=== PATIENT | female | born 1955 | race Caucasian/White ===

== ENCOUNTER → 2016-12-25 | Outpatient (CLI) | payer BC ==
[~2016-12-25] MED LIST: 00186-0372-20 IH; CEPHALEXIN500 M1 PO; DIOVAN 80MG80 MG PO; DIOVAN HCT 12.51 TA2 PO; FLOVENT DI50 MCG/Act IH; GENTAMICIN EYE D5 ML OP; INDERAL80 MG PO; LEVOTHYROXINE PO; NORCO 325 MG-51 TAB PO; PREVACID 30MG30 M1 PO; PREVACID30 MG PO; PROPRANOLOL; SINGULAIR 110 MG/TAB PO; SYNTHROID0.1 MG/TAB PO; ZOFRAN 4MG T4 MG/TAB PO
== END ==
LOC: MC.RAD 08:26
DX: Z12.31 Encounter for screening mammogram for malignant neoplasm of breast (principal)

== ENCOUNTER → 2016-12-27 | Outpatient (CLI) | payer BC | LOC: MC.RAD 10:02 | DX: N64.89 Other specified disorders of breast (principal) ==

== ENCOUNTER → 2017-01-01 | Outpatient (CLI) | payer BC | LOC: MC.RAD 06:58 | DX: N64.89 Other specified disorders of breast (principal) ==

== ENCOUNTER 2017-03-24 09:45 | Outpatient (RCR) | payer BC | END 2017-04-08 | LOC: WSPT | DX: M25.512 Pain in left shoulder (principal) | CPT/HCPCS: G0283-GP ==

== ENCOUNTER 2017-05-14 15:30 | Outpatient (RCR) | payer BC | END 2017-05-22 15:09 | LOC: WSPT 15:30 | DX: M25.512 Pain in left shoulder (principal) ==

== ENCOUNTER → 2019-02-22 | Outpatient (CLI) | payer BC | LOC: MC.RAD 02-19 07:15 | DX: Z12.31 Encounter for screening mammogram for malignant neoplasm of breast (principal) ==

== ENCOUNTER → 2020-05-04 | Outpatient (CLI) | payer BC | LOC: MC.RAD 09:45 | DX: Z12.31 Encounter for screening mammogram for malignant neoplasm of breast (principal); Z98.82 Breast implant status ==

== ENCOUNTER 2021-01-07 07:41 | Inpatient (IN) | payer BC ==
[~2021-01-07] VITALS: Ht 162.6 cm; Wt 99.5 kg
[2021-01-07] VITALS (7 sets, daily range): BP systolic 107–154; BP diastolic 47–69; PULSE 45–60; TEMP 97.5–98
[2021-01-07 08:15] LABS: BASO % 0.5 % (0.0-2.0); EOS # 0.1 (0.0-0.7); EOS % 2.1 % (0-4.0); GRAN # 3.9 (1.4-6.5); GRAN % 60.7 % (42.2-75.2); HEMATOCRIT 39.3 % (37.0-47.0); HEMOGLOBIN 12.6 g/dl (12.5-16.0); LYMPH # 1.8 (1.2-3.4); LYMPH % 28.2 % (20.0-51.0); MEAN CELL VOLUME 89 fl (80.0-100.0); MEAN CORPUSCULAR HEMOGLOBIN 29 pg (27.0-31.0); MEAN CORPUSCULAR HGB CONC 32 g/dl (33.0-37.0); MEAN PLATELET VOLUME 9.5 fl (7.4-10.4); MONO # 0.5 (0.1-0.6); MONO % 8.2 % (1.7-9.3); PLATELET COUNT 190 K/mm3 (130-400); REDCELL DISTRIBUTION WIDTH-CV 14.2 % (11.5-14.5)
[2021-01-07 08:21] LABS: INR 1.1 (0.8-3.0); PROTHROMBIN TIME 12.5 SECONDS (9.7-12.8)
[2021-01-07 08:25] LABS: ALANINE AMINOTRANSFERASE 22 U/L (4-34); ALBUMIN 3.7 gm/dL (3.5-5.0); ALKALINE PHOSPHATASE 60 U/L (50-136); ANION GAP 6 mmol/L (7-16); AST,SGOT 23 U/L (15-37); BLOOD UREA NITROGEN 13 mg/dL (7-17); CALCIUM 8.5 mg/dL (8.4-10.2); CARBON DIOXIDE 28 mmol/L (22-30); CHLORIDE 105 mmol/L (98-107); CREATINE KINASE 37 U/L (30-135); CREATININE, serum 0.56 (0.52-1.25); GLUCOSE 103 mg/dL (74-106); MAGNESIUM 1.9 mg/dL (1.6-2.3); POTASSIUM 3.6 mmol/L (3.4-5.0); SODIUM 139 mmol/L (137-145); TOTAL PROTEIN 6.8 gm/dL (6.4-8.2)
[2021-01-07 08:37] LABS: TROPONIN-I < 0.012 ng/mL (0.000-0.035)
--- NOTE | 2021-01-07 11:00 | NUR ---
Patient to room 311 from the ED on the stretcher. Patient was able to scoot onto the medical bed without assistance. A&Ox4. IV CDI. Family at the bedside. Nurse oriented the patient to location, room and bed. No further needs expressed from the patient. Call light within reach
[2021-01-07] MEDS ORDERED: ZYRTEC 10MG10 MG PO (11:04)
[2021-01-07] MEDS ORDERED: ADVIL200 MG PO (11:04)
[2021-01-07] MEDS ORDERED: VITAMINC1000TA (11:05)
[2021-01-07] MEDS ORDERED: MASON NATURAL2000 IU PO (11:05)
--- NOTE | 2021-01-07 13:15 | NUR ---
Patient taken by wheelchair to CT. Patient 1xassist to the wheelchair. Family staying in the room.
--- NOTE | 2021-01-07 13:41 | NUR ---
Patient back to room from CT scan.
--- NOTE | 2021-01-07 15:45 | NUR ---
Report from LUPILLO Arredondo. Pt resting in bed, awake and alert, reports feeling better, denies needs at this time. IVF's infusing per orders. Call light in reach.
--- NOTE | 2021-01-07 17:57 | NUR ---
Pt sitting up in bed, attempting to eat dinner, reports feeling much better compared to arrival but still having slight dizziness when sitting up. 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 No further needs reported. Call light in reach.
--- NOTE | 2021-01-08 03:03 | NUR ---
BOTH HAND GRASPS ARE STRONG BUT THEY ARE UNEQUAL. THE LEFT HAND GRASP IS STRONGER THAN THE RIGHT.
[2021-01-08 03:22] VITALS: BP 115/47; PULSE 48; TEMP 97.5
[2021-01-08 06:39] LABS: BASO % 0.4 % (0.0-2.0); EOS # 0.1 (0.0-0.7); EOS % 1.9 % (0-4.0); GRAN % 56.7 % (42.2-75.2); HEMATOCRIT 37.5 % (37.0-47.0); HEMOGLOBIN 11.7 g/dl (12.5-16.0); LYMPH # 1.8 (1.2-3.4); LYMPH % 33.6 % (20.0-51.0); MEAN CELL VOLUME 92 fl (80.0-100.0); MEAN CORPUSCULAR HEMOGLOBIN 29 pg (27.0-31.0); MEAN CORPUSCULAR HGB CONC 31 g/dl (33.0-37.0); MEAN PLATELET VOLUME 10.2 fl (7.4-10.4); MONO # 0.4 (0.1-0.6); PLATELET COUNT 179 K/mm3 (130-400); REDCELL DISTRIBUTION WIDTH-CV 14.4 % (11.5-14.5)
[2021-01-08 07:03] LABS: CALCIUM 7.9 mg/dL (8.4-10.2); CHOLESTEROL RISK RATIO 3.7; CREATININE, serum 0.52 (0.52-1.25); POTASSIUM 3.5 mmol/L (3.4-5.0)
[2021-01-08 08:23] VITALS: BP 126/55; PULSE 65; TEMP 97.2
--- NOTE | 2021-01-08 09:00 | NUR ---
Assessment completed, alert/oriented, vital signs stable/ slightly bradycardic and is having dizziness with any movement or exertion/ position changes, she deffinately has right sided deficits, she has RUE and RLE weakness as well as reports some right sided facial tingling/ and some very mild facial paralysis, she tested positive for BPPV with PT and was treated with positional debris clearing manuever, heart regular/ SB on tele rate in the 50's, she had her ECHO, she is scheduled for MRI of brain, started on ASA, family present in the room, she denies other need at this time
--- NOTE | 2021-01-08 09:09 | NUR ---
Initial visit; Patient and family thanked Photogrammetric Surveyor for looking in on her. Photogrammetric Surveyor offered God's blessings and will follow up when patient is recovering.
[2021-01-08 12:18] VITALS: BP 120/50; PULSE 49; TEMP 97.7
[2021-01-08 16:15] VITALS: BP 108/51; PULSE 49; TEMP 97.9
[2021-01-08 20:08] VITALS: BP 114/51; PULSE 50; TEMP 98.5
[2021-01-09 04:31] VITALS: BP 114/51; PULSE 50; TEMP 97.8
--- NOTE | 2021-01-09 07:05 | NUR ---
awake resting in bed, bedside shift report received from LUPILLO Beal
--- NOTE | 2021-01-09 07:35 | NUR ---
c/o headache, states she thinks she slept wrong, medicated with tylenol 650mg po, full assessment completed, see interventions for further info, denies further needs
[2021-01-09 08:13] VITALS: BP 131/52; PULSE 50; TEMP 97.9
[2021-01-09 08:50] LABS: BASO % 0.3 % (0.0-2.0); EOS # 0.1 (0.0-0.7); EOS % 1.3 % (0-4.0); GRAN % 67.1 % (42.2-75.2); HEMATOCRIT 35.1 % (37.0-47.0); HEMOGLOBIN 11.1 g/dl (12.5-16.0); LYMPH # 1.5 (1.2-3.4); LYMPH % 24.4 % (20.0-51.0); MEAN CELL VOLUME 91 fl (80.0-100.0); MEAN CORPUSCULAR HEMOGLOBIN 29 pg (27.0-31.0); MEAN CORPUSCULAR HGB CONC 32 g/dl (33.0-37.0); MEAN PLATELET VOLUME 9.8 fl (7.4-10.4); MONO # 0.4 (0.1-0.6); MONO % 6.6 % (1.7-9.3); PLATELET COUNT 157 K/mm3 (130-400); RED BLOOD COUNT 3.87 M/mm3 (4.10-5.30); REDCELL DISTRIBUTION WIDTH-CV 14.4 % (11.5-14.5)
--- NOTE | 2021-01-09 09:00 | NUR ---
appears to be dozing, in bed with lights off, eyes closed, resp quiet and easy, daughter at bedside
[2021-01-09 09:04] LABS: CREATININE, serum 0.49 (0.52-1.25); POTASSIUM 3.4 mmol/L (3.4-5.0)
--- NOTE | 2021-01-09 09:43 | NUR ---
awakened and Dr Anglin and care team in to see patient
--- NOTE | 2021-01-09 10:30 | NUR ---
physical therapy in to work with patient
--- NOTE | 2021-01-09 11:15 | NUR ---
PATEL Cooper in to see patient
--- NOTE | 2021-01-09 11:30 | NUR ---
sitting up in chair, c/o nausea after working with therapy, medicated with zofran 4mg slow IV
[2021-01-09 11:47] VITALS: BP 131/54; PULSE 45; TEMP 98.5
--- NOTE | 2021-01-09 13:30 | NUR ---
durable medical equipment technician called and stated heart rate was in the high 30s, entered room and she is in bed and appears to be sleeing, lights off, resp quiet and easy, at bedside
--- NOTE | 2021-01-09 14:28 | NUR ---
Hammer Fitter met with patient and patient's , Silas (ph#[phone]) to discuss discharge planning. Patient lives in [place] with Silas and sees Dr. Ambrocio for primary care. Patient obtains medications from [facility] with no difficulties. Patient does not use any DME and is normally independent with ADLS. Patient does not have DPOA-HC, but was interested in completing form while she is here. SW will follow up. Discharge Plan: Home with
--- NOTE | 2021-01-09 14:34 | NUR ---
resting in bed, family at bedisde
--- NOTE | 2021-01-09 14:54 | NUR ---
ambulating in [place] with physical therapy, steady gait
--- NOTE | 2021-01-09 16:24 | NUR ---
appears to be sleeping, in bed with lights off, eyes closed, resp quiet and easy, family at bedside
[2021-01-09 16:25] VITALS: BP 147/61; PULSE 49; TEMP 98
--- NOTE | 2021-01-09 16:40 | NUR ---
assisted up to bathroom, states she is feeling much better and ambulated with slow stady gate, then back to bed
--- NOTE | 2021-01-09 18:48 | NUR ---
bedside shift report given to LUPILLO Beal
[2021-01-09 20:08] VITALS: BP 133/61; PULSE 48; TEMP 97.8
[2021-01-10] VITALS (10 sets, daily range): BP systolic 120–165; BP diastolic 52–73; PULSE 42–67; TEMP 97.5–98
--- NOTE | 2021-01-10 06:23 | NUR ---
PATIENT REPORTED SHE SLEPT ABOUT 4 HOURS LAST NIGHT. PATIENT CONTINUES TO BE BRADYCARDIC. PLEASE SEE PATEL WHITE'S NOTE.
[2021-01-10 07:44] LABS: ANION GAP 7 mmol/L (7-16); BLOOD UREA NITROGEN 6 mg/dL (7-17); CARBON DIOXIDE 24 mmol/L (22-30); CHLORIDE 110 mmol/L (98-107); CREATININE, serum 0.45 (0.52-1.25); GLUCOSE 87 mg/dL (74-106); MAGNESIUM 1.9 mg/dL (1.6-2.3); POTASSIUM 3.2 mmol/L (3.4-5.0); SODIUM 141 mmol/L (137-145)
[2021-01-10 08:09] LABS: TROPONIN-I < 0.012 ng/mL (0.000-0.035)
--- NOTE | 2021-01-10 09:24 | NUR ---
Assessment completed, alert/oriented, vital signs stable/ still having bradycardia and had episode during night where HR dipped into the 30's/ Cardiology is aware and as of now plans for pacemaker once discussed with the patient, her dizziness/ vertigo symptoms are improved but still present, she is ambulating with PT this morning and doing better than she has been, she is NPO for possible pacer, family present, she verabalized understanding of POC, denies other needs or concerns at this time
--- NOTE | 2021-01-10 10:45 | NUR ---
Patient is going to lab support tech for Pacemaker placement at this time
[2021-01-11 04:21] VITALS: BP 133/58; PULSE 66; TEMP 98
[2021-01-11 08:02] VITALS: BP 122/60; PULSE 59; TEMP 97.9
--- NOTE | 2021-01-11 08:34 | NUR ---
Assessment completed, alert/oriented, vital signs stable, heart RRR/ A paced on tele, left arm in immobilizer and incision s/p pacer is C/D/I, denies significant pain or discomfort, lungs CTA/ no resp.difficulty noted, she reports continue vertigo but is improved significantly from before, K+ 3.1 and replacing potassium per protocol she is sitting up in the chair, morning meds given, she dneies other needs at this time, will continue to monitor
--- NOTE | 2021-01-11 09:26 | NUR ---
[facility] IPR consulted. Awaiting screen.
--- NOTE | 2021-01-11 09:37 | NUR ---
[employer] attended clinical rounds with the team. The patient's Lyme Disease screen came back positive, Infectious disease consulted.
[2021-01-11 12:00] VITALS: BP 125/62; PULSE 60; TEMP 98
[2021-01-11 16:00] VITALS: BP 132/60; PULSE 61; TEMP 97.7
--- NOTE | 2021-01-11 18:00 | NUR ---
Assumed care of Pt from LUPILLO Headley, report received.
[2021-01-11 20:12] VITALS: BP 137/58; PULSE 60; TEMP 97.6
--- NOTE | 2021-01-11 20:54 | NUR ---
Initial shift assessment done- denies pain, pacemaker site clean and dry with steri strips intact, Tele on, pt states she did eat well tday- requesting Miralax tonight- last BM was last friday. Sitting up- in chair at this time. Pleasant-alert/oriented- understands to call for assistance up to bathroom.
[2021-01-11 23:49] VITALS: BP 147/62; PULSE 63; TEMP 97.6
[2021-01-12 03:45] VITALS: BP 141/70; PULSE 62; TEMP 97.9
--- NOTE | 2021-01-12 05:28 | NUR ---
Has been sleeping failry well since about 11pm last night-- up to bathroom at this time with assist, states overall she is feeling better-does still have some vertigo/dizziness when she moves but states it is so much better,VSS. tele on-paced.
--- NOTE | 2021-01-12 05:45 | NUR ---
Tylenol given for the "start of a headache".
[2021-01-12 06:26] LABS: BASO % 0.3 % (0.0-2.0); EOS # 0.2 (0.0-0.7); EOS % 2.3 % (0-4.0); GRAN # 4.3 (1.4-6.5); GRAN % 65.3 % (42.2-75.2); HEMOGLOBIN 11.5 g/dl (12.5-16.0); LYMPH # 1.7 (1.2-3.4); LYMPH % 25.1 % (20.0-51.0); MEAN CELL VOLUME 89 fl (80.0-100.0); MEAN CORPUSCULAR HEMOGLOBIN 29 pg (27.0-31.0); MEAN CORPUSCULAR HGB CONC 32 g/dl (33.0-37.0); MONO # 0.4 (0.1-0.6); MONO % 6.5 % (1.7-9.3); PLATELET COUNT 156 K/mm3 (130-400); RED BLOOD COUNT 4.04 M/mm3 (4.10-5.30); REDCELL DISTRIBUTION WIDTH-CV 14.5 % (11.5-14.5)
[2021-01-12 06:32] LABS: HEMATOCRIT 35.9 % (37.0-47.0)
[2021-01-12 06:44] LABS: CALCIUM 8.1 mg/dL (8.4-10.2); CREATININE, serum 0.44 (0.52-1.25); POTASSIUM 3.4 mmol/L (3.4-5.0)
[2021-01-12 07:49] VITALS: BP 129/46; PULSE 60; TEMP 97.6
--- NOTE | 2021-01-12 09:48 | NUR ---
Pt awake and alert upon entry, sitting in the recliner, family in room, has C/O headache medications given for relief. Shift assessments complete, left Pt sitting in recliner, call light in reach.
[2021-01-12 11:58] VITALS: BP 146/54; PULSE 60; TEMP 98.1
--- NOTE | 2021-01-12 14:31 | NUR ---
Ayleen, [facility] Director reports that the insurance has denied the patient for post acute rehab. SW met with the patient to discuss options. The patient declined home health. The patient would like to discuss OP PT with her before making a decision. *Discharge disposition: Home
[2021-01-12 17:37] VITALS: BP 151/69; PULSE 60; TEMP 97.9
[2021-01-12 19:17] VITALS: BP 131/60; PULSE 58; TEMP 97.7
--- NOTE | 2021-01-12 20:00 | NUR ---
Assessment complete. Patient is alert and oriented with no complaints of pain, migraine of dizziness at this time. She ambulates steadily with walker and SBA. Right forearm INT is leaky when flushed; IV removed and initiation of new site is completed. Comfort measures met and call light in reach. Will continue to monitor.
[2021-01-12 23:42] VITALS: BP 159/69; PULSE 59; TEMP 97.8
[2021-01-13 03:34] VITALS: BP 149/65; PULSE 60; TEMP 97.8
[2021-01-13 06:28] LABS: BASO % 0.3 % (0.0-2.0); EOS # 0.2 (0.0-0.7); EOS % 3.1 % (0-4.0); GRAN # 3.5 (1.4-6.5); GRAN % 59.4 % (42.2-75.2); HEMOGLOBIN 10.9 g/dl (12.5-16.0); LYMPH # 1.7 (1.2-3.4); LYMPH % 29.4 % (20.0-51.0); MEAN CELL VOLUME 89 fl (80.0-100.0); MEAN CORPUSCULAR HEMOGLOBIN 29 pg (27.0-31.0); MEAN CORPUSCULAR HGB CONC 32 g/dl (33.0-37.0); MONO # 0.4 (0.1-0.6); MONO % 7.5 % (1.7-9.3); PLATELET COUNT 161 K/mm3 (130-400); REDCELL DISTRIBUTION WIDTH-CV 14.7 % (11.5-14.5)
[2021-01-13 06:45] LABS: CALCIUM 8.4 mg/dL (8.4-10.2); CREATININE, serum 0.4 (0.52-1.25); POTASSIUM 3.4 mmol/L (3.4-5.0)
[2021-01-13 06:52] LABS: HEMATOCRIT 33.9 % (37.0-47.0)
[2021-01-13 08:42] VITALS: BP 122/74; PULSE 67; TEMP 97.8
--- NOTE | 2021-01-13 09:12 | NUR ---
Pt awake and alert this morning, no C/O pain at this time. Pt is able to turn her head more this morning without vertigo. Shift assessments complete, left Pt call light in reach, bed in lowest position.
[2021-01-13] MEDS ORDERED: CEPHALEXIN500 M1 PO (10:52)
[2021-01-13] MEDS ORDERED: DOXYCYCLINE 10100 MG PO (10:54)
[2021-01-13] MEDS ORDERED: TYLENOL 325MG325 MG PO (10:55)
[2021-01-13] MEDS ORDERED: ZOFRAN ODT4 MG PO (10:56)
[2021-01-13] MEDS ORDERED: IMITREX50 MG PO (11:00)
[2021-01-13 12:11] VITALS: BP 137/66; PULSE 59; TEMP 98.5
--- NOTE | 2021-01-13 12:45 | NUR ---
FARIDEH sent fax to outpatient therapy for PT orders on [facility] Fax to [phone]. Educates patient and family on services to setup on Friday.
--- NOTE | 2021-01-13 14:00 | NUR ---
Pt discharged to home, discussed discharge packet with Pt, answered questions. Escorted Pt to entrance via WC, assisted into vehicle. Pt left with family via private transportation.
[2021-01-14 13:27] LABS: SPOTTED FEVER IGG ANTIBODY <1:64 (<1:64)
== END 2021-01-13 14:00 | disposition home or self-care (01) | DRG 243 ==
LOC: COL.ER 07:41 → MEDICAL 08:51
PROVIDERS: Emergency Medicine; Internal Medicine Infectious Disease; Physician Assistant; Student in an Organized Health Care Education/Training Program; ADMIT Hospitalist
PROC: 0JH606Z Insertion of Pacemaker, Dual Chamber into Chest Subcutaneous Tissue and Fascia, Open Approach (ICD-10-PCS; principal; 2021-01-07)
PROC: 02HK3JZ Insertion of Pacemaker Lead into Right Ventricle, Percutaneous Approach (ICD-10-PCS; 2021-01-07)
PROC: 02H63JZ Insertion of Pacemaker Lead into Right Atrium, Percutaneous Approach (ICD-10-PCS; 2021-01-07)
PROC: 4A03X5D Measurement of Arterial Flow, Intracranial, External Approach (ICD-10-PCS; 2021-01-07)
DX: R00.1 Bradycardia, unspecified (principal); A69.22 Other neurologic disorders in Lyme disease; I44.0 Atrioventricular block, first degree; I10 Essential (primary) hypertension; J45.909 Unspecified asthma, uncomplicated; K21.9 Gastro-esophageal reflux disease without esophagitis; E03.9 Hypothyroidism, unspecified; H81.22 Vestibular neuronitis, left ear; M62.81 Muscle weakness (generalized); E87.6 Hypokalemia; G43.909 Migraine, unspecified, not intractable, without status migrainosus; R20.0 Anesthesia of skin; Z88.1 Allergy status to other antibiotic agents; S09.90XA Unspecified injury of head, initial encounter; W18.30XA Fall on same level, unspecified, initial encounter; I45.10 Unspecified right bundle-branch block
CPT/HCPCS: 99222-AI; 99232-AI; 99233-AI; 99239; A9585; C1785; C1894; C1898; J0690; J1200; J1650; J2250; J2405; J2765; J3010; J7030; Q9967

== ENCOUNTER 2021-01-31 09:00 | Outpatient (RCR) | payer BC ==
[~2021-01-31 09:00] MED LIST changes: +ADVIL200 MG PO; +DOXYCYCLINE 10100 MG PO; +IMITREX50 MG PO; +MASON NATURAL2000 IU PO; +TYLENOL 325MG325 MG PO; +VITAMINC1000TA; +ZOFRAN ODT4 MG PO; +ZYRTEC 10MG10 MG PO
== END 2021-01-31 10:00 | disposition home or self-care (01) ==
LOC: WSPT 09:00
DX: M79.2 Neuralgia and neuritis, unspecified (principal); R42 Dizziness and giddiness

== ENCOUNTER → 2021-06-06 | Outpatient (CLI) | payer BC | LOC: MC.RAD 07:45 | DX: Z12.31 Encounter for screening mammogram for malignant neoplasm of breast (principal) ==

== ENCOUNTER 2021-11-16 19:51 | Emergency (ER) | payer BC ==
[~2021-11-16] VITALS: Ht 162.6 cm; Wt 75.0 kg
[2021-11-16 19:54] VITALS: TEMP 97.6
[2021-11-16 20:32] LABS: BASO % 0.3 % (0.0-2.0); EOS % 0.1 % (0.0-4.0); GRAN # 11.3 K/mm3 (1.4-6.5); GRAN % 83.9 % (42.2-75.2); HEMATOCRIT 42.4 % (37.0-47.0); HEMOGLOBIN 13.7 g/dl (12.5-16.0); LYMPH # 1.3 K/mm3 (1.2-3.4); MEAN CELL VOLUME 90 fl (80.0-100.0); MEAN CORPUSCULAR HEMOGLOBIN 29 pg (27-31); MEAN CORPUSCULAR HGB CONC 32 g/dl (33.0-37.0); MEAN PLATELET VOLUME 9.3 fl (7.4-10.4); MONO # 0.7 K/mm3 (0.1-0.6); MONO % 5.4 % (1.7-9.3); PLATELET COUNT 219 K/mm3 (130-400); RED BLOOD COUNT 4.73 M/mm3 (4.10-5.30); REDCELL DISTRIBUTION WIDTH-CV 14.1 % (11.5-14.5)
[2021-11-16 20:51] LABS: ALANINE AMINOTRANSFERASE 19 U/L (0-55); ALBUMIN 3.8 gm/dL (3.4-4.8); ALKALINE PHOSPHATASE 57 U/L (40-150); ANION GAP 15 mmol/L (7-16); AST,SGOT 15 U/L (5-34); BILIRUBIN,TOTAL 1.2 mg/dL (0.2-1.2); BLOOD UREA NITROGEN 15 mg/dL (10-20); C-REACTIVE PROTEIN 0.15 mg/dL (0.00-0.50); CALCIUM 9.1 mg/dL (8.4-10.2); CARBON DIOXIDE 23 mmol/L (23-31); CHLORIDE 103 mmol/L (98-107); CREATINE KINASE 51 U/L (29-168); CREATININE, serum 0.69 mg/dL (0.57-1.11); GLUCOSE 125 mg/dL (70-99); LIPASE 22 U/L (8-78); POTASSIUM 3.3 mmol/L (3.5-4.5); SODIUM 141 mmol/L (136-145); TOTAL PROTEIN 6.9 gm/dL (6.2-8.1)
[2021-11-16 21:00] LABS: TROPONIN-I < 0.010 ng/mL (0.00-0.033)
[2021-11-16 21:49] LABS: COLLECTION METHOD CLEAN CATCH
[2021-11-16 21:55] LABS: MUCOUS Present (NOT PRESENT); PH 5 (5-8); SQUAMOUS EPITHELIAL 0-2 /hpf (0-10); URINE APPEARANCE Clear (CLEAR/HAZY); URINE BACTERIA None Seen /hpf (NONE SEEN); URINE BILIRUBIN Negative (NEGATIVE); URINE BLOOD Negative (NEGATIVE); URINE COLOR Yellow (YELLOW); URINE GLUCOSE Negative (NEGATIVE); URINE KETONE 2+ (NEGATIVE); URINE LEUKOCYTE ESTERASE Negative (NEGATIVE); URINE NITRATE Negative (NEGATIVE); URINE PROTEIN(semi-quant) Negative (NEGATIVE); URINE RBC 0-2 /hpf (0-2); URINE UROBILINOGEN Negative (NEGATIVE)
[2021-11-16] MEDS ORDERED: NORCO 325 MG-51 TAB PO (22:31)
[2021-11-16] MEDS ORDERED: CARAFATE 1GM1 G PO (22:31)
[2021-11-16] MEDS ORDERED: ZOFRAN ODT4 MG PO (22:31)
[2021-11-16 22:36] VITALS: BP 118/79; PULSE 68
== END 2021-11-16 22:39 | disposition home or self-care (01) ==
LOC: COL.ER 19:51
PROVIDERS: Emergency Medicine
DX: K29.70 Gastritis, unspecified, without bleeding (principal); D72.829 Elevated white blood cell count, unspecified; Z90.49 Acquired absence of other specified parts of digestive tract
CPT/HCPCS: C9113; J2270; J2405; J3010; J7030; Q9967

== ENCOUNTER → 2022-09-17 | Outpatient (CLI) | payer MEDICARE ==
[~2022-09-17] MED LIST changes: +CARAFATE 1GM1 G PO
== END ==
LOC: COL.RAD 10:36
DX: R91.1 Solitary pulmonary nodule (principal)
CPT/HCPCS: Q9967

== ENCOUNTER → 2023-07-24 | Outpatient (CLI) | payer MEDICARE | LOC: CANSCHCLI → MC.RAD 07:41 | DX: Z12.31 Encounter for screening mammogram for malignant neoplasm of breast (principal) ==